=== PATIENT | male | born 1960 | race Caucasian/White ===

== ENCOUNTER → 2023-05-09 11:26 | Outpatient (CLI) | payer BC, SELFPAY ==
--- NOTE | 2023-05-09 11:31 | CA_ITS ---
FINAL REPORT TECHNIQUE: Color Doppler, duplex Doppler and compression sonography of the right lower extremity venous system was performed. CLINICAL HISTORY: Right leg pain and edema COMPARISON: None FINDINGS: There is no evidence of deep venous thrombosis from the level of the groin to the calf. The veins are patent and compressible. There is a 5.4 cm fluid collection in the medial right calf which may represent hematoma. Possible large popliteal cyst with inferior extension. IMPRESSION: No evidence of deep venous thrombosis right lower extremity. 5.4 cm medial right calf fluid collection as above. Reviewed, Interpreted and Dictated by Gentry Yin III, MD Transcribed by Joyce Obrien Authenticated and [facility]
== END ==
PROVIDERS: PCP Nurse Practitioner Family; Visit Provider Nurse Practitioner Family
DX: M79.661 Pain in right lower leg (principal)
CPT/HCPCS: 93971

== ENCOUNTER → 2023-05-24 13:12 | Outpatient (CLI) | payer BC, SELFPAY ==
--- NOTE | 2023-05-24 13:15 | XR_ITS ---
FINAL REPORT CLINICAL HISTORY: Rt Calf pain FINDINGS: Right tibia fibula Two views were obtained. There is no acute fracture or dislocation. The joint spaces appear normal. No soft tissue abnormality is identified. IMPRESSION: No acute process. Reviewed, Interpreted and Dictated by Sae Delatorre MD Transcribed by Melissa Yu Authenticated and [facility]
== END ==
LOC: RAD 13:13
PROVIDERS: PCP Family Medicine; Visit Provider Orthopaedic Surgery
DX: M79.661 Pain in right lower leg (principal)
CPT/HCPCS: 73590

== ENCOUNTER → 2023-06-01 12:47 | Outpatient (CLI) | payer BC, SELFPAY ==
--- NOTE | 2023-06-01 12:47 | MR_ITS ---
FINAL REPORT CLINICAL HISTORY: rt lower leg pain and swelling x3 weeks, no known injury. COMPARISON: None FINDINGS: MRI RIGHT LOWER LEG: Multiplanar imaging of the right lower leg was performed from the knee through the ankle without administering contrast. There is a large complex multiseptated collection in the medial right lower leg, measuring 20 cm in craniocaudal dimension and 6 cm in AP dimension. This collection lies deep to the fascia of the medial head of the gastrocnemius and exerts significant mass effect on the underlying muscle. No bone marrow edema is identified. There is mild degenerative change involving the medial tibial plateau. IMPRESSION: Large complex multiseptated collection in the medial right lower leg exerting significant mass effect on the underlying gastrocnemius muscle as described. This most likely represents a large subacute hematoma. No bone marrow edema identified. Reviewed, Interpreted and Dictated by Sae Delatorre MD Transcribed by Kezia Napier Authenticated and [facility]
== END ==
PROVIDERS: PCP Family Medicine; Visit Provider Orthopaedic Surgery
DX: M79.661 Pain in right lower leg (principal)
CPT/HCPCS: 73718